=== PATIENT | female | born 1995 | race Caucasian/White ===

== ENCOUNTER 2025-11-04 18:00 | Emergency (ER) | payer BC, SELFPAY ==
[2025-11-04 18:01] VITALS: BP 117/88; PULSE 86; RESP 16; TEMP 36.7; O2SAT 97; BMI 16.9
--- OUTSIDE RECORDS SUMMARY | 2025-11-04 18:50 | XMS RPT_ITS | CCD ---
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 Name Role Phone Unavailable Primary Care Provider UnavailSALBADOR Mendez Attending Unavailable SALBADOR STUART Attending Unavailable SALBADOR STUART Referring Unavailable SALBADOR STUART Referring Unavailable SALBADOR STUART Referring Unavailable TAY JONES Referring Unavail able SALBADOR STUART Attending Unavailable Allergies Allergy Classification Reported Allergen(s) Allergy Type Date of Onset Reaction(s) Facility (6 sources) Iodine; Translations: [IODINE] Drug Allergy 10-16-2022 [facility] Medications Completed/Discontinued Medications Medication Drug Class(es) Dates Sig (Normalized) Sig (Original) acetaminophen 500 mg oral tablet (5 sources) acetaminophen (TYLENOL) 500 mg tablet Take 500 mg by mouth as needed. 0 Active Comment on above: Take 500 mg by mouth as needed. acetaminophen 325 mg / oxyCODONE hydrochloride 10 mg oral tablet (5 sources) Opioid Agonist take 1 tablet by mouth every eight hours oxyCODONE-acetamino phen (PERCOCET 10) 10-325 mg tablet Take 1 tablet by mouth every 8 hours. 0 Active Comment on above: Take 1 tablet by naomi every 8 hours. amLODIPine 2.5 mg oral tablet (5 sources) Dihydropyridine Calcium Channel Meagan amLODIPine (NORVASC) 2.5 mg tablet Take by mouth once daily. 0 Active Comment on above: Take by mouth once d aily. azithromycin 500 mg oral tablet (2 sources) Macrolide Antimicrobial take 1 tablet by mouth once daily azithromycin (ZITHROMAX) 500 mg tablet Take 500 mg by mouth once daily. 0 Active Comment on above: Take 500 mg by mouth once daily. cloNIDine hydrochloride 0.1 mg oral tablet (5 sources) Central alpha-2 Adrenergic Agonist take 1 tablet by mouth once daily cloNIDine HCl (CATAPRES) 0.1 mg tablet Take 0.1 mg by mouth once daily. 0 Active Comment on above: Take 0.1 mg by mouth once daily. cyclobenzaprine hydrochloride 10 mg oral tablet (2 sources) Muscle Relaxant cyclobenzaprine (FLEXERIL) 10 mg tablet Take by mouth as needed. 0 Active Comment on above: Take by mouth as nee ded. dexamethasone 4 mg oral tablet (2 sources) Corticosteroid take 1 tablet by mouth once daily dexAMETHasone (DECADRON) 4 mg tablet Take 4 mg by mouth once daily. 0 Active Comment on above: Take 4 mg by mouth o nce daily. 72 hr fentaNYL 0.025 mg/hr transdermal system (5 sources) Opioid Agonist fentaNYL (DURAGESIC) 25 mcg/hr Apply 1 Patch as directed every 72 hours. 0 Active Comment on above: Apply 1 Patch as dir ected every 72 hours. hydrOXYzine pamoate 50 mg oral capsule (5 sources) Antihistamine take 50 mg by mouth once daily hydroxyzine pamoate (VISTARIL ORAL) Take 50 mg by mouth once daily. 0 Active Comment on above: Take 50 mg by mouth once daily. ibuprofen 800 mg oral tablet (5 sources) Nonsteroidal Anti-inflammatory Drug take 1 tablet by mouth four times daily ibuprofen (MOTRIN) 800 mg tablet Take 800 mg by mouth four times daily. 0 Active Comment on above: Take 800 mg by mouth four times daily. iv contrast (will be provided with radiology test) (1 source) Start: 2 End: 2 inject 1 dose intravenously once, then inject 1 dose intravenously once iv contrast (will be provided with radiology test) Inject 1 Each intravenously one time only for [address] Facial Bone W No IV access, insert saline lock prior to the sedation, infusion, injection for imaging exam. Discontinue saline lock post exam. If Pt. has a central line or IVAD, may access for administration according to line specific nursing protocol. Once exam is complete flush line and de-access according to line specific nursing protocol in the CT contrast administration guidelines link. 1 Each 0 04/10/2022 04/10/2022 Comment on above: Inject 1 Each intrav enously one time only for [address] Facial Bone W No IV access, insert saline lock prior to the sedation, infusion, injection for imaging exam. Discontinue saline lock post exam. If Pt. has a central line or IVAD, may access for administration according to line specific nursing protocol. Once exam is complete flush line and de-access according to line specific nursing protocol in the CT contrast administration guidelines link. ondansetron 8 mg oral tablet (2 sources) Serotonin-3 Receptor Antagonist ondansetron (ZOFRAN) 8 mg tablet Take 8 mg by mouth as needed for nausea/vomiting. 0 Active Comment on above: Take 8 mg by mouth a s needed for nausea/vomiting. propranolol hydrochloride 20 mg oral tablet (5 sources) beta-Adrenergic Meagan take 1 tablet by mouth twice daily propranolol (INDERAL) 20 mg tablet Take 20 mg by mouth twice daily. 0 Active Comment on above: Take 20 mg by mouth twice daily. traMADol hydrochloride 50 mg oral tablet (5 sources) Opioid Agonist take 1 tablet by mouth every eight hours as needed traMADol (ULTRAM) 50 mg tablet Take 50 mg by mouth every 8 hours as needed for pain. 0 Active Comment on above: Take 50 mg by mouth every 8 hours as needed for pain. traZODone hydrochloride 50 mg oral tablet (5 sources) Serotonin Reuptake Inhibitor take 1 tablet by mouth once daily at bedtime traZODone (DESYREL) 50 mg tablet Take 50 mg by mouth daily at bedtime. 0 Active Comment on above: Take 50 mg by mouth daily at bedtime. Problems Active Problems Problem Classification Problem Date Documented Date Episodic/Chronic Other nervous system disorders (3 sources) Atypical facial pain; Translations: [Atypical facial pain] Episodic Other screening for suspected conditions (not mental disorders or infectious disease) (3 sources) Radiology result abnormal; Translations: [Abnormal findings on diagnostic imaging of other parts of musculoskeletal system] Onset: 11-26-2022 Episodic Past or Other Problems Problem Classification Problem Date Documented Da te Episodic/Chronic Other nervous system disorders (1 source) Atypical facial pain; Translations: [Atypical facial pain] Onset: 04-10-2022 Episodic Results Test Name Value Interpretation Reference Range Facil doreen David 12-15-2022 CNOV Office Visit (DMFPMN ) LLUVIA COOLEY ([id number]) 1995 F Date Time Provider Department 12/15/22 1:30 PM SALBADOR STUART DMFPMN During your visit today, we recorded the following information about you: Salbador Stuart DDS 12/30/2022 10:40 AM 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 Interval history provided by the patient - Pain not being managed. She started with a new pain medicine physician. Currently on 7.5mg of percocet TID along with tramadol. Not on fentanyl patch. Reports this is less than what she was taking previously. She reviewed the results NM bone scan on my chart prior to her visit. Pain at the site of #23 is worse. RCT on #26 is still in progress. She is currently on ABX whiich will finish in 2 week approximately. Also reports UR side had develop either a fistula or a ulcer and she was started on ABX for the same and that has subsequently resolved. There is a plan to repeat RCT on #18 as well. Interval history obtained via chart review - Patient had multiple ER visits in 2022 for maxillofacial pain. Patient was also seen at [facility] shirt marker for her complaints and and is pending MRI face to rule out osteomyelitis of the mandible. Exam: No changes from previous No extraoral swelling or erythema Intraoral Soft Tissues: Surgical site of #23 has healed. No gingival swelling, erythema that would suggest an infectious process. No vestibular fullness in the anterior mandible. No fistula noted on URQ. +TT palpation at one spot along the vestibule. Dentition: Good repair Radiographic examination: PA of #4,5 taken today No osteolytic changes noted. Bone fill noted compared to previous PA #4,5 Assessment: Post extraction pain Atypical facial pain, multiple sites Discussion: Results of NM bone scan were reviewed. I have also reviewed the study with a radiologist. Uptake is asymmetric but not significantly higher that would suggest an acute or chronic infectious process. Uptake in the rest of the body is higher than the mandible. Based on the study, no evidence of acute or chronic inflammatory process in the mandible event he uptake is asymmetric. No clinical or radiographic evidence of an ongoing osteolytic process of the bone at #23. In the absence of clinical and radiological findings, no surgical intervention is indicated. Patient is not satisfied and reported this was same way on URQ where the infection didn't show on routine radiograph and even on CT scan. Only imaging that showed bony involvement was a bone scan. She also insisted on the radiology report that 'the uptake is asymmetric and non specific and labeled leukocyte study may be performed'. 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 I explained to her that in the absence of clinical concern for infectious process the In-labeled leukocytes and sulfur colloid) SPECT-CT scan is not necessary. Patient was extremely frustrated and expressed that everything is so difficult and she is in pain without relief. Again, I have low suspicion of of an ongoing osteomyelitis or inflammatory process of the anterior mandible based on clinical and imaging obtained. Will order In-labeled leukocytes and sulfur colloid to check for any acute or chronic inflammatory process. Advised to stay off of antibiotics for 4 weeks before the scan and no manipulation in the area of interest. Bone scan can still show uptake due to underlying bone turnover and metabolism which still will be clinically correlated for osteomyelitis prior to any intervention. 30 Minutes total visit spent face to face with patient. Greater than 50% of the time was spent for counseling and coordination of care, discussing treatment options and recommendations. All of patients questions answered to the best of my ability. Referring Provider: SALBADOR STUART [[id number]] Allergies As of Date: 12/15/2022 Noted Allergy Reaction IV CONTRAST (IODINE) 10/16/2022 2 - Rash Comments: Gets chest pain Date Reviewed: 12/15/2022 Reviewed by: Ashish Guerrero - Fully Assessed Reason for Visit: Oral surgery followup [1492] Primary Visit Diagnosis:Atypical facial pain [G50.1] Order(s):NM INFECTION LIMITED WBC [[id number]] Order #: [id number] FUTURE Prescriptions as of 12/30/2022 - azithromycin (ZITHROMAX) 500 mg tablet Take 500 mg by mouth once daily. - ondansetron (ZOFRAN) 8 mg tablet Take 8 mg by mouth as needed for nausea/vomiting. - cyclobenzaprine (FLEXERIL) 10 mg tablet Take by mouth as needed. - dexAMETHasone (DECADRON) 4 mg tablet Take 4 mg by mouth once daily. - oxyCODONE-acetaminoph en (PERCOCET 10) 10-325 mg tablet Take 1 tablet by mouth every 8 hours. - traMADol (more content not included)... Normal [facility] CNPNon 12-15-2022 CNPN Telephone ([employer]) LLUVIA COOLEY ([id number]) 1995 F Date Time Provider Department 12/15/22 SALBADOR STUART [employer] During your visit today, we recorded the following information about you: Lauren Ospina [facility] 12/15/2022 3:19 PM Signed Patient is complaining about the process for for scheduling and stating she needs orders put in system from appointment today Allergies As of Date: 12/15/2022 Noted Allergy Reaction IV CONTRAST (IODINE) 10/16/2022 2 - Rash Comments: Gets chest pain Date Reviewed: 12/15/2022 Reviewed by: Ashish Guerrero - Fully Assessed Reason for Visit: Orders [681] Cmt: Patient is stating she needs orders put into the system for testing and to be scheduled. Prescriptions as of 12/15/2022 - azithromycin (ZITHROMAX) 500 mg tablet Take 500 mg by mouth once daily. - ondansetron (ZOFRAN) 8 mg tablet Take 8 mg by mouth as needed for nausea/vomiting. - cyclobenzaprine (FLEXERIL) 10 mg tablet Take by mouth as needed. - dexAMETHasone (DECADRON) 4 mg tablet Take 4 mg by mouth once daily. - oxyCODONE-acetaminoph en (PERCOCET 10) 10-325 mg tablet Take 1 tablet by mouth every 8 hours. - traMADol (ULTRAM) 50 mg tablet Take 50 mg by mouth every 8 hours as needed for pain. - ibuprofen (MOTRIN) 800 mg tablet Take 800 mg by mouth four times daily. - acetaminophen (TYLENOL) 500 mg tablet Take 500 mg by mouth as needed. - propranolol (INDERAL) 20 mg tablet Take 20 mg by mouth twice daily. - amLODIPine (NORVASC) 2.5 mg tablet Take by mouth once daily. - hydroxyzine pamoate (VISTARIL ORAL) Take 50 mg by mouth once daily. - cloNIDine HCl (CATAPRES) 0.1 mg tablet Take 0.1 mg by mouth once daily. - traZODone (DESYREL) 50 mg tablet Take 50 mg by mouth daily at bedtime. - fentaNYL (DURAGESIC) 25 mcg/hr Apply 1 Patch as directed every 72 hours. Problem List As Of Date: 12/15/2022 (None) Encounter Status:Closed by LAUREN PONCE on 12/15/22 Normal [facility] BONE 3 PHASEon 11-26-2022 AL BONE 3 PHASE * * *Final Report* * * DATE OF EXAM: Nov 26 2022 2:23PM [facility] 0009 - AL BONE 3 PHASE / PROCEDURE REASON: Abnormal findings on diagnostic imaging of other parts of musculoskeletal system * * * * Physician Interpretation * * * * THREE PHASE BONE SCAN CLINICAL HISTORY: Atypical mandibular pain. ? osteomyelitis in mandible without clinical signs of osteomyelitis. TECHNIQUE: 18 mCi 99mTc MDP IV. Immediate blood flow, blood pool, and delayed images 3-4 hours post injection of the head and neck were obtained. SPECT imaging of the head and neck was performed; nondiagnostic, noncontrast CT imaging of the same body region was performed for anatomic localization purposes only. Due to the low dose technique utilized for the acquisition of the CT images to minimize patient dose, the images cannot reliably evaluate underlying pathology. Incidental findings are noted. CT Dose-Length Product (DLP): 113 mGy*cm. CT Dose Reduction Employed: Yes RESULT: Flow images are somewhat suboptimal due to the count density. Blood pool images demonstrate no hyperemia On the delayed planar and SPECT-CT imaging, mild asymmetrically increased uptake in the right mandibular condyle Slight asymmetric uptake measuring approximately 2.5 cm in length in the left mandibular alveolar ridge from the mentum extending laterally Slight heterogeneity with no other definite focal abnormal uptake in the maxillary mandibular alveolar ridges. Associate Software Engineer (topogram) images: No additional findings. IMPRESSION: * Slight asymmetric uptake measuring approximately 2.5 cm in length in the LEFT mandibular alveolar ridge from the mentum extending laterally, the degree of uptake is not typical of osteomyelitis, and may be due to ongoing bone turnover although is nonspecific. If there is a clinical concern for an infectious process, evaluation with a dual tracer (In-labeled leukocytes and sulfur colloid) SPECT-CT scan may be performed. * Mild asymmetrically increased uptake in the RIGHT mandibular condyle may be secondary to residual growth plate uptake, and less likely, TMJ degenerative changes or osteomyelitis. Suggest correlation with clinical exam findings to determine follow-up workup. Medical Service Representative: LOUIS Transcribe Date/Time: Nov 26 2022 4:43P Dictated by : CAROLS MATOS MD This examination was interpreted and the report reviewed and electronically signed by: CARLOS MATOS MD on Nov 26 2022 5:17PM EST [id number] Normal [facility] No Panel Informationon 11-26 [facility] CNOVon 10-16-2022 CNOV Office Visit (DMFPMN ) LLUVIA COOLEY ([id number]) 1995 F Date Time Provider Department 10/16/22 2:00 PM SALBADOR STUART DMFPMN During your visit today, we recorded the following information about you: Salbador Stuart DDS 10/21/2022 4:44 PM 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 CT scan ordered at last visit showed no evidence of ongoing osteomyelitis or inflammatory disease. Since the last visit, she had another tooth removed since it was fractured and has continuous pain at the surgical site. 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 Reports dull achy pain has underwent multiple attempts for RCT with no relief. Reconstruction of URQ with dental implants. Reports her symptoms on URQ have improved. She is not sure if the pain medication is masking her symptoms on the upper left. Reports she is currently looking to switch her PCP. Is on Fentanyl patch, tramadol and percocet to manage her facial pain. Also taking ibuprofen, tylenol for #26 as other meds do not help with that tooth. At present time, #23,26 are most painful. Current Outpatient Medications Medication Sig Dispense Refill oxyCODONE-acetaminoph en (PERCOCET) 10-325 mg tablet Take 1 tablet by mouth every 8 hours. traMADol (ULTRAM) 50 mg tablet Take 50 mg by mouth every 8 hours as needed for pain. ibuprofen (MOTRIN) 800 mg tablet Take 800 mg by mouth four times daily. acetaminophen (TYLENOL EXTRA STRENGTH) 500 mg tablet Take 500 mg by mouth as needed. propranolol (INDERAL) 20 mg tablet Take 20 mg by mouth twice daily. amLODIPine (NORVASC) 2.5 mg tablet Take by mouth once daily. hydroxyzine pamoate (VISTARIL ORAL) Take 50 mg by mouth once daily. cloNIDine HCl (CATAPRES) 0.1 mg tablet Take 0.1 mg by mouth once daily. traZODone (DESYREL) 50 mg tablet Take 50 mg by mouth daily at bedtime. fentaNYL (DURAGESIC) 25 mcg/hr Apply 1 Patch as directed every 72 hours. No current facility-administered medications for this visit. General appearance: alert, pleasant, no distress, cooperative. Extraoral, Head and Neck exam: No extraoral swelling or erythema Intraoral Soft Tissues: Surgical site of #23 has healed. No gingival swelling, erythema that would suggest an infectious process. No vestibular fullness in the anterior mandible. Dentition: Good repair Radiographic examination: PA of #23 taken Well healed extraction socket of #23. No osteolytic changes noted. Assessment: Post extraction pain Atypical facial pain, multiple sites Discussion: No clinical or radiographic evidence of an ongoing osteolytic process of the bone at #23. In the absence of clinical and radiological findings, no surgical intervention is indicated. Patient was not satisfied and reported this was same way on URQ where the infection didn't show on routine radiograph and even on CT scan. Only imaging that showed bony involvement was a bone scan. I have low suspicion of of an ongoing osteomyelitis or inflammatory process of the anterior mandible. Will order bone scan to rule any pathosis. Bone scan can still show uptake due to underlying bone turnover and metabolism which still will be clinically correlated for osteomyelitis prior to any intervention. Patient did inquire about reconstructive option for URQ with dental implants since her pain seemed to have improved at that site. In order to reconstruct the URQ will require additional bone grafts +/- sinus augmentation. Given her h/o refractory facial pain after surgical procedure I would advise against any further surgical intervention if she is asymptomatic. No surgical restorative options were discussed and she reports using a removable partial denture. Referring Provider: TAY JONES [[id number]] Allergies As of Date: 10/16/2022 Noted Allergy Reaction IV CONTRAST (IODINE) 10/16/2022 2 - Rash Comments: Gets chest pain Date Reviewed: 04/10/2022 Reviewed by: Ashish Reyes Fully Assessed Reason for Visit: Consult [502] Primary Visit Diagnosis:Atypical facial pain [G50.1] Other Visit Diagnosis:Abnormal findings on diagnostic imaging of other parts of musculoskeletal system [R93.7] Order(s):NM BONE 3 PHASE [1983173] Order #: [id number] FUTURE CONSULTATION - DIAGNOSTIC SERVICE PROVIDED BY DENTIST OR PHYSICIAN OTHER THAN REQUESTING DENTIST OR PHYSICIAN [D9310] Order #: [id number]: 1 FUTURE CONSULTATION - DIAGNOSTIC SERVICE PROVIDED BY DENTIST OR PHYSICIAN OTHER THAN REQUESTING DENTIST OR PHYSICIAN [D9310] Order #: [id number]: 1 Prescriptions as of 10/21/2022 - oxyCODONE-acetaminoph en (PERCOCET) 10-325 mg tablet Take 1 table (more content not included)... Normal [facility]UV[facility]OO[facility] ([id number]) 1995 [facility] Date Time Provider Department 08/15/22 [facility] During your visit today, we recorded the following information about you: DEE Dos Santos 08/15/2022 3:11 PM Signed LVM for pt per her message she left me yesterday to discuss her concerns regarding scheduling in dentistry Allergies As of Date: 08/15/2022 (Not on File) Date Reviewed: 04/10/2022 Reviewed by: Ashish Reyes Fully Assessed Reason for Visit: Patient Update [1234] Problem List As Of Date: 08/15/2022 (None) Encounter Status:Closed by GILMA RANGEL on 08/15/22 [facility] 08-14-2022 CNPN Telephone ([facility]FN) LLUVIA COOLEY ([id number]) 1995 [facility] Time Provider Department 08/14/22 [facility] During your visit today, we recorded the following information about you: Allergies As of Date: 08/14/2022 (Not on File) Date Reviewed: 04/10/2022 Reviewed by: Ashish Reyes Fully Assessed Reason for Visit: Appointment [186] Problem List As Of Date: 08/14/2022 (None) Encounter Status:Closed by [facility]CH [facility][id number]) 1995 [facility] Date Time Provider Department 08/14/22 [facility] During your visit today, we recorded the following information about you: Ester Syed 08/14/2022 3:56 PM Signed I called patient regarding MyChart message. I wanted to see if it was #18 that was bothering patient since that was treatment planned for EXT. Patient stated it was #26-her natural resource specialist referred her to OS. Per Dr. Stuart patient needs to have referral/xray sent to us and once we have that then we can set up 15 min virtual appointment. Patient asked about extraction site of #23-we did not do the extraction, but patient is stating it is bothering her. She is having issues with her current oral surgeon so does not know how she would be able to get a referral here for that. I encouraged her to focus on what she can get for the time being and she can discuss those concerns at her virtual follow up with Dr. Stuart once we can schedule that. She stated she didn't want a virtual follow up/wouldn't be comfortable with that. I expressed that is understandable and we would be able to make it into an in person, Dr. Stuart simply wanted to save her the drive. She continued to express that this is not the results she was hoping for. I explained it is per Dr. Stuart and I have to follow his guidance. 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 I transferred her to [facility] (however I believe she was unavailable-patient had to leave a message). Allergies As of Date: 08/14/2022 (Not on File) Date Reviewed: 04/10/2022 Reviewed by: Ashish Reyes - Fully Assessed Reason for Visit: Appointment [186] Cmt: 15 min virtual consult Problem List As Of Date: 08/14/2022 (None) Encounter Status:Closed by ESTER LYNCH on 08/14/22 [facility] CNOVon 04-10-2022 CNOV Office Visit (DMFPMN ) LLUVIA COOLEY ([id number]) 1995 F [facility] Date Time Provider Department 04/10/22 8:00 AM SALBADOR STUART DM[facility]MN During your visit today, we recorded the following information about you: Salbador StuartJOHANNA 04/21/2022 1:56 PM 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 Jones/Davion for persistent pain in extraction sockets #4,5,17. Mandibular left quadrant (LLQ) 2016 - #17,32 was removed and patient reports long lasting pain. Pain in #32 eventually resolved but experiences constant pain in LLQ. Pain is severe like a tooth ache but she experiences this in her jaw bone. Her dentist recommended RCT #18 which was completed in dec-january. Pain persisted and now her dentist recommends extractions of tooth #18. Maxillary right quadrant (URQ) August 2020 - #4 RCT tooth fractured - abscessed - extracted May 2021 - #5 infected - extracted Reports severe aching bone pain. Reports in january 2022 her oral surgeon did a biopsy and that showed evidence of osteomyelitis. H/o PICC line for IV abx twice. 2017 - for LLQ June to August 2021 for URQ Currently on oral antibiotics by ID. She didn't seem happy with the current management and feels like this maxillary osteomyelitis isn't being treated. 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 Current regimen is doxycycline and augmentin for 6 weeks. Patient is 2 weeks into treatment. Patient has seen every oral surgeon in her area and also seeked consultation at [facility]. reprots she didn't have a good experience at [facility] and was recommended to see pain management. She is currently taking percocet for pain in the URQ; reports percocet doesn't help with her pain in the LLQ, so for that she takes tramadol. Her main complaints is ongoing pain and is concerned that she is osteomyelitis of right maxilla and it is not being treated. Patient was advised to go tertiary care medical centers ([facility] and [facility] for management). Chart review was performed on care everywhere. Patient has under multiple CT can, bone scan and MRI. MRI form 2020 - no evidence of osteomyelitis. Refer to ID note from 03/19 in care everywhere. PMH - palpitations, anxiety PSH - maxillary debridement 2020 Meds - Inderal, percocet, tramadol General appearance: alert, pleasant, no distress, cooperative. Extraoral, Head and Neck exam: No extraoral swelling or erythema Parotid and submandibular glands soft, nonpainful to palpation bilaterally No lymphadenopathy V1, V2, V3, CN VII intact bilaterally ZOE Intraoral Soft Tissues: Clear saliva extruded from bilateral Sanjiv's and Waldo's ducts. Tongue soft and non-tender with no apparent lesions. Buccal mucosa without lesions bilaterally. Hard palate is without any lesions Soft palate is without erythema or gross lesions Oropharynx is WNL. Floor of mouth is soft, non tender. No palpable masses on bidigital manipulation. +TTP in the right maxillary edentulous space. No buccal vestibular edema, no fluctuance, no erythema No soft tissue changes suggest acute or chronic infection Dentition: Good repair Radiographic examination: GALEAS reviewed Well healed extraction socket #17 Recent RCT of #18. No PARL. Flattened left mandibular condyle Right maxillary alveolus with enlarged sinus. No moth eaten osteolytic changes noted. No evidence of osteomyelitis. Assessment: Atypical facial pain ? Osteomyelitis of maxilla Discussion: Patient is currently on oral ABX Advised her to continue with current treatment. If she prefers I can refer her to an ID specialist here. But patient prefers to find someone close to home. Advised patient to get CRP levels. These are very sensitive markers for inflammation. If there is acute or chronic infection/inflammatio n, it will be alter the CRP levels. Patient is interested is having tooth #18 removed. Advised her to provide us with a referral. It is possible that this may not relieve her pain on the LLQ and she has been suffering form chronic pain on the left side. Will obtain CT facial bones with IV contrast to evaluate any ongoing osteolysis in the jaw. If the there is no radiographic evidence of disease, surgical intervention is not recommended. Will likely defer to medical management and pain psychology center here. Plan pending CT. Extraction of #18 under [place]. Referring Provider: SELF [200] Allergies As of Date: 04/10/2022 (Not on File) Date Reviewed: 04/10/2022 Reviewed by: Oscar Reyes-A - Fully Assessed Reason for Visit: Consult [502] Visit Diagnosis:Atypical facial pain [G50.1] Order(s):CT FACIAL BONES W IVCON [[id number]] Order #: [id number] FUTURE [] iv contrast ( (more content not included)... Normal [facility] Encounters Encounter Date Encounter Type Care Provider Facility Start: 12-15-2022 End: 12-15-2022 ambulatory [facility] Facility:[facility] Start: 12-15-2022 Telephone encounter Salbador franz DDS Work Phone: Appointment Center Comment on above: Orders (Patient is s tating she needs orders put into the system for testing and to be scheduled. ) Start: 12-15-2022 End: 12-15-2022 Patient encounter procedure Salbador Stuart DDS Work Phone: Dentistry Comment on above: Atypical facial pain (Primary Dx) Start: 11-26-2022 End: 11-26-2022 [facility] Facility:[facility] Start: 11-26-2022 End: 11-26-2022 Subsequent hospital visit by physician [email or web address] Work Phone: Molecular Imaging Comment on above: Abnormal findings on diagnostic imaging of other parts of musculoskeletal system [R93.7] Start: 11-26-2022 End: 11-26-2022 [facility] Facility:[facility] Start: 11-26-2022 End: 11-26-2022 Subsequent hospital visit by physician [email or web address] Work Phone: Molecular Imaging Comment on above: Abnormal findings on diagnostic imaging of other parts of musculoskeletal system [R93.7] Start: 10-16-2022 End: 10-17-2022 ambulatory TAY JONES Facility:[facility] Start: 10-16-2022 End: 10-16-2022 Patient encounter procedure Salbador Stuart DDS Work Phone: Dentistry Comment on above: Atypical facial pain (Primary Dx); Abnormal findings on diagnostic imaging of other parts of musculoskeletal system Start: 08-14-2022 Telephone encounter Salbador Lucas osei DDS Work Phone: Dentistry Comment on above: Appointment (15 min virtual consult ) Appointment Start: 04-10-2022 End: 04-11-2022 ambulatory SALBADOR STUART Facility:[facility] Start: 04-10-2022 End: 04-10-2022 Patient encounter procedure Salbador Stuart JOHANNA Work Phone: Dentistry Comment on above: Atypical facial pain Procedures Date Procedure Procedure Detail Performing Clinician Start: 11-26-2022 Bone &/joint imaging 3 phase study Salbador Stuart JOHANNA Work Phone: Plan of Treatment Date Care Activity Detail Author Start: 11-09-2022 DEPRESSION ASSESSMENT [facility] Start: 07-10-2022 Influenza vaccination [facility] Start: 11-09-2021 DEPRESSION ASSESSMENT DEPRESSION ASS [facility] Start: 08-21-2021 COVID-19 VACCINE (3 - Booster for Pfizer series) COVID-19 VACCINE (3 - Booster for Pfizer series) [facility] Start: 05-16-2021 COVID-19 VACCINE (3 - Booster for Pfizer series) COVID-19 VACCINE (3 - Booster for Pfizer series) [facility] Start: 2016 PAP TESTING PAP TESTING [facility] Start: 2014 Urine microalbumin profile DTAP,TDAP,TD (1 - Tdap) [facility] Start: 2013 HEPATITIS C SCREENING HEPATITIS C SC REENING [facility] Start: 2013 HIV SCREENING HIV SCREENING [facility] Start: 2009 PEDS TO ADULT TRANSITION ANNUAL ASSESSMENT PEDS TO ADULT TRANSITION ANNUAL ASSESSMENT [facility] Start: 2007 Adult depression screening assessment DEPRESSION SCREENING [facility] Start: 2007 PEDS TO ADULT TRANSITION INITIAL DISCUSSION PEDS TO ADULT TRANSITION INITIAL DISCUSSION [facility] Start: 2006 HPV VACCINE (1 - 2-d ose series) HPV VACCINE (1 - 2-dose series) [facility] Start: 1995 Dental Oral Exam Dental Oral Exam [facility] Start: 1995 Dental Perio Probing Dental Perio Pr obing [facility] Start: 1995 Dental Prophylaxis Dental Prophylaxi s [facility] Start: 1995 Dental X-Ray: Bitewings Dental X-Ray : Bitewings [facility] Start: 1995 Dental X-Ray: FMX/Galeas Dental X-Ray: FMX/Galeas [facility] Start: 1995 HEPATITIS B (1 of 3 - 3-dose series) HEPATITIS B (1 of 3 - 3-dose series) [facility] Start: 1995 Periodontal Maintenance Periodontal Maintenance [facility] 18 EXTRACTION, ERUPT ED TOOTH REQUIRING REMOVAL OF BONE AND/OR SECTIONING OF TOOTH, AND INCLUDING ELEVATION OF MUCOPERIOSTE 18 EXTRACTION, ERUPTED TOOTH REQUIRING REMOVAL OF BONE AND/OR SECTIONING OF TOOTH, AND INCLUDING ELEVATION OF MUCOPERIOSTE Dental Routine 1 Occurrences starting 04/18/2022 [facility] Work Phone: Comment on above: 1 Occurrences starti ng 04/18/2022 End: 11-15-2023 Bone &/joint imaging 3 phase study NM BONE 3 PHASE Radiology Routine Abnormal findings on diagnostic imaging of other parts of musculoskeletal system 1 Occurrences starting 10/16/2022 until 11/15/2023 [facility] Work Phone: Comment on above: 1 Occurrences starti ng 10/16/2022 until 11/15/2023 CONSULTATION - DIAGNOSTIC SERVICE PROVIDED BY DENTIST OR PHYSICIAN OTHER THAN REQUESTING DENTIST OR PHYSICIAN CONSULTATION - DIAGNOSTIC SERVICE PROVIDED BY DENTIST OR PHYSICIAN OTHER THAN REQUESTING DENTIST OR PHYSICIAN Dental Routine Atypical facial pain 1 Occurrences starting 10/21/2022 [facility] Work Phone: Comment on above: 1 Occurrences starti ng 10/21/2022 End: 05-10-2023 Ct maxillofacial w/contrast material CT FACIAL BONES W IVCON Radiology Routine Atypical facial pain 1 Occurrences starting 04/10/2022 until 05/10/2023 [facility] Work Phone: Comment on above: 1 Occurrences starti ng 04/10/2022 until 05/10/2023 End: 01-15-2024 Rp loclzj inflammatory process limited area NM INFECTION LIMITED WBC Radiology Routine Atypical facial pain 1 Occurrences starting 12/16/2022 until 01/15/2024 [facility] Work Phone: Comment on above: 1 Occurrences starti ng 12/16/2022 until 01/15/2024 [facility] Payers Date Payer Category Payer Private Health Insurance [employer] A ETNA ASA GENERIC [id number] 2022-Present [phone] [id number] [place] [place] [address] [place] [address] PPO [id number] 2022 Unknown [id number] 2021 Unknown DENTAL DELTA [employer] MARLYS [id number] 2021-Present [address] [place] [address] Dental [id number] 2021 Unknown DENTAL DELTA [employer] MARLYS [id number] 2021-Present [address] [place] [address] Dental [id number] 2021 Unknown [id number] Social History Date Type Detail Facility Tobacco smoking stat [facility] Tobacco smoking consumption unknown [facility] Start: 1995 Sex Assigned At Not on file [facility] Start: 03-31-2022 End: 04-10-2022 Exposure to SARS-CoV-2 (event) Not sure [facility] Clinical Notes 04-18-2022 to 12-16-2022 Salbador Stuart DDS - 12/16/2022 11:26 AM ESTTelephone Encounter - Lauren Faith - 12/15/2022 3:18 PM RT Brian(R) - 11/26/2022 10:30 AM EST Note Date & Type Note Facility 12-16-2022 Note HNO ID: [id number] Author: Salbador Stuart DDS Service: ? 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 Interval history provided by the patient - Pain not being managed. She started with a new pain medicine physician. Currently on 7.5mg of percocet TID along with tramadol. Not on fentanyl patch. Reports this is less than what she was taking previously. She reviewed the results NM bone scan on my chart prior to her visit. Pain at the site of #23 is worse. RCT on #26 is still in progress. She is currently on ABX whiich will finish in 2 week approximately. Also reports UR side had develop either a fistula or a ulcer and she was started on ABX for the same and that has subsequently resolved. There is a plan to repeat RCT on #18 as well. Interval history obtained via chart review - Patient had multiple ER visits in 2022 for maxillofacial pain. Patient was also seen at [facility] shirt marker for her complaints and and is pending MRI face to rule out osteomyelitis of the mandible. Exam: No changes from previous No extraoral swelling or erythema Intraoral Soft Tissues: Surgical site of #23 has healed. No gingival swelling, erythema that would suggest an infectious process. No vestibular fullness in the anterior mandible. No fistula noted on URQ. +TT palpation at one spot along the vestibule. Dentition: Good repair Radiographic examination: PA of #4,5 taken today No osteolytic changes noted. Bone fill noted compared to previous PA #4,5 Assessment: Post extraction pain Atypical facial pain, multiple sites Discussion: Results of NM bone scan were reviewed. I have also reviewed the study with a radiologist. Uptake is asymmetric but not significantly higher that would suggest an acute or chronic infectious process. Uptake in the rest of the body is higher than the mandible. Based on the study, no evidence of acute or chronic inflammatory process in the mandible event he uptake is asymmetric. No clinical or radiographic evidence of an ongoing osteolytic process of the bone at #23. In the absence of clinical and radiological findings, no surgical intervention is indicated. Patient is not satisfied and reported this was same way on URQ where the infection didn't show on routine radiograph and even on CT scan. Only imaging that showed bony involvement was a bone scan. She also insisted on the radiology report that 'the uptake is asymmetric and non specific and labeled leukocyte study may be performed'. 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 I explained to her that in the absence of clinical concern for infectious process the In-labeled leukocytes and sulfur colloid) SPECT-CT scan is not necessary. Patient was extremely frustrated and expressed that everything is so difficult and she is in pain without relief. Again, I have low suspicion of of an ongoing osteomyelitis or inflammatory process of the anterior mandible based on clinical and imaging obtained. Will order In-labeled leukocytes and sulfur colloid to check for any acute or chronic inflammatory process. Advised to stay off of antibiotics for 4 weeks before the scan and no manipulation in the area of interest. Bone scan can still show uptake due to underlying bone turnover and metabolism which still will be clinically correlated for osteomyelitis prior to any intervention. 30 Minutes total visit spent face to face with patient. Greater than 50% of the time was spent for counseling and coordination of care, discussing treatment options and recommendations. All of patients questions answered to the best of my ability. 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 Interval history provided by the patient - Pain not being managed. She started with a new pain medicine physician. Currently on 7.5mg of percocet TID along with tramadol. Not on fentanyl patch. Reports this is less than what she was taking previously. She reviewed the results NM bone scan on my chart prior to her visit. Pain at the site of #23 is worse. RCT on #26 is still in progress. She is currently on ABX whiich will finish in 2 week approximately. Also reports UR side had develop either a fistula or a ulcer and she was started on ABX for the same and that has subsequently resolved. There is a plan to repeat RCT on #18 as well. Interval history obtained via chart review - Patient had multiple ER visits in 2022 for maxillofacial pain. Patient was also seen at [facility] shirt marker for her complaints and and is pending MRI face to rule out osteomyelitis of the mandible. Exam: No changes from previous No extraoral swelling or erythema Intraoral Soft Tissues: Surgical site of #23 has healed. No gingival swelling, erythema that would suggest an infectious process. No vestibular fullness in the anterior mandible. No fistula noted on URQ. +TT palpation at one spot along the vestibule. Dentition: Good repair Radiographic examination: PA of #4,5 taken today No osteolytic changes noted. Bone fill noted compared to previous PA #4,5 Assessment: Post extraction pain Atypical facial pain, multiple sites Discussion: Results of NM bone scan were reviewed. I have also reviewed the study with a radiologist. Uptake is asymmetric but not significantly higher that would suggest an acute or chronic infectious process. Uptake in the rest of the body is higher than the mandible. Based on the study, no evidence of acute or chronic inflammatory process in the mandible event he uptake is asymmetric. No clinical or radiographic evidence of an ongoing osteolytic process of the bone at #23. In the absence of clinical and radiological findings, no surgical intervention is indicated. Patient is not satisfied and reported this was same way on URQ where the infection didn't show on routine radiograph and even on CT scan. Only imaging that showed bony involvement was a bone scan. She also insisted on the radiology report that 'the uptake is asymmetric and non specific and labeled leukocyte study may be performed'. 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 I explained to her that in the absence of clinical concern for infectious process the In-labeled leukocytes and sulfur colloid) SPECT-CT scan is not necessary. Patient was extremely frustrated and expressed that everything is so difficult and she is in pain without relief. Again, I have low suspicion of of an ongoing osteomyelitis or inflammatory process of the anterior mandible based on clinical and imaging obtained. Will order In-labeled leukocytes and sulfur colloid to check for any acute or chronic inflammatory process. Advised to stay off of antibiotics for 4 weeks before the scan and no manipulation in the area of interest. Bone scan can still show uptake due to underlying bone turnover and metabolism which still will be clinically correlated for osteomyelitis prior to any intervention. 30 Minutes total visit spent face to face with patient. Greater than 50% of the time was spent for counseling and coordination of care, discussing treatment options and recommendations. All of patients questions answered to the best of my ability. documented in this encounter [facility] 12-15-2022 Miscellaneous Notes Patient is complaining about the process for for scheduling and stating she needs orders put in system from appointment today documented in this encounter [facility] 11-26-2022 Note HNO ID: [id number] Author: RT Bill(R) Service: Nuclear Medicine Author Type: Technologist Type: Progress Notes Filed: 11/26/2022 11:36 AM Note Text: RADIOLOGY SERVICE PROGRESS NOTE SERVICE DATE: 11/26/2022 SERVICE TIME: 11:35 AM PATIENT IDENTITY VERIFICATION COMPLETED USING TWO (2) STANDARD IDENTIFIERS: Name and Date of confirmed by patient verbally FALL SCREENING: Has the patient had 2 falls in the last year or 1 fall with injury or currently using an Ambulatory Assistive Device (Walker, Cane, Wheelchair, Crutches, etc.)? No PATIENT GENDER DATA: .female : No ALLERGIES: Reviewed and unchanged MEDICATIONS REVIEWED: Yes PATIENT RELEVANT IMPLANT DATA REVIEWED: Not Applicable CREATININE: No results found for: CREAT, EGFROTH, EGFRAA P.O.C.T. RESULTS: N/A November 26, [address] PERFORMED: No IV SITE: Ambulatory: A peripheral IV was started in the Left antecubital site with a Angio cath: 24 gauge. POST EXAM PIV STATUS: Discontinued PROCEDURE TYPE: NM INJECT: THREE PHASE BONE SCAN. 18 mCi Tc99m MDP. No other medications given.. ADMINISTRATION TIME: 1125 PATIENT DISCHARGED TO: Ambulatory patient, left NM department area. A Diagnostic radioactive procedure has taken place, with no further precautions necessary other than routine body substance precautions. More information regarding radiation safety can be found using this link: [email or web address]%20Nuclear%20M [email or web address] SIGNATURE: RT Bill(R) PATIENT NAME: Lluvia Cooley DATE: November 26, 2022 TIME: 11:35 AM PAGER/CONTACT #: [facility] 11-26-2022 History of Presen t illness Narrative RADIOLOGY SERVICE PROGRESS NOTE SERVICE DATE: 11/26/2022 SERVICE TIME: 11:35 AM PATIENT IDENTITY VERIFICATION COMPLETED USING TWO (2) STANDARD IDENTIFIERS: Name and Date of confirmed by patient verbally FALL SCREENING: Has the patient had 2 falls in the last year or 1 fall with injury or currently using an Ambulatory Assistive Device (Walker, Cane, Wheelchair, Crutches, etc.)? No PATIENT GENDER DATA: .female : No ALLERGIES: Reviewed and unchanged MEDICATIONS REVIEWED: Yes PATIENT RELEVANT IMPLANT DATA REVIEWED: Not Applicable CREATININE: No results found for: CREAT, EGFROTH, EGFRAA P.O.C.T. RESULTS: N/A November 26, [address] PERFORMED: No IV SITE: Ambulatory: A peripheral IV was started in the Left antecubital site with a Angio cath: 24 gauge. POST EXAM PIV STATUS: Discontinued PROCEDURE TYPE: NM INJECT: THREE PHASE BONE SCAN. 18 mCi Tc99m MDP. No other medications given.. ADMINISTRATION TIME: 1125 PATIENT DISCHARGED TO: Ambulatory patient, left NM department area. A Diagnostic radioactive procedure has taken place, with no further precautions necessary other than routine body substance precautions. More information regarding radiation safety can be found using this link: [email or web address]% 20Nuclear%20Medicine%20Procedur es.[email or web address] SIGNATURE: JHON Khan) PATIENT NAME: Lluvia Cooley DATE: November 26, 2022 TIME: 11:35 AM PAGER/CONTACT #: documented in this encounter [facility] 10-21-2022 Note HNO ID: [id number] Author: Salbador Stuart DDS Service: ? 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 CT scan ordered at last visit showed no evidence of ongoing osteomyelitis or inflammatory disease. Since the last visit, she had another tooth removed since it was fractured and has continuous pain at the surgical site. 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 Reports dull achy pain has underwent multiple attempts for RCT with no relief. Reconstruction of URQ with dental implants. Reports her symptoms on URQ have improved. She is not sure if the pain medication is masking her symptoms on the upper left. Reports she is currently looking to switch her PCP. Is on Fentanyl patch, tramadol and percocet to manage her facial pain. Also taking ibuprofen, tylenol for #26 as other meds do not help with that tooth. At present time, #23,26 are most painful. Current Outpatient Medications Medication Sig Dispense Refill oxyCODONE-acetaminophen (PERCOCET) 10-325 mg tablet Take 1 tablet by mouth every 8 hours. traMADol (ULTRAM) 50 mg tablet Take 50 mg by mouth every 8 hours as needed for pain. ibuprofen (MOTRIN) 800 mg tablet Take 800 mg by mouth four times daily. acetaminophen (TYLENOL EXTRA STRENGTH) 500 mg tablet Take 500 mg by mouth as needed. propranolol (INDERAL) 20 mg tablet Take 20 mg by mouth twice daily. amLODIPine (NORVASC) 2.5 mg tablet Take by mouth once daily. hydroxyzine pamoate (VISTARIL ORAL) Take 50 mg by mouth once daily. cloNIDine HCl (CATAPRES) 0.1 mg tablet Take 0.1 mg by mouth once daily. traZODone (DESYREL) 50 mg tablet Take 50 mg by mouth daily at bedtime. fentaNYL (DURAGESIC) 25 mcg/hr Apply 1 Patch as directed every 72 hours. No current facility-administered medications for this visit. General appearance: alert, pleasant, no distress, cooperative. Extraoral, Head and Neck exam: No extraoral swelling or erythema Intraoral Soft Tissues: Surgical site of #23 has healed. No gingival swelling, erythema that would suggest an infectious process. No vestibular fullness in the anterior mandible. Dentition: Good repair Radiographic examination: PA of #23 taken Well healed extraction socket of #23. No osteolytic changes noted. Assessment: Post extraction pain Atypical facial pain, multiple sites Discussion: No clinical or radiographic evidence of an ongoing osteolytic process of the bone at #23. In the absence of clinical and radiological findings, no surgical intervention is indicated. Patient was not satisfied and reported this was same way on URQ where the infection didn't show on routine radiograph and even on CT scan. Only imaging that showed bony involvement was a bone scan. I have low suspicion of of an ongoing osteomyelitis or inflammatory process of the anterior mandible. Will order bone scan to rule any pathosis. Bone scan can still show uptake due to underlying bone turnover and metabolism which still will be clinically correlated for osteomyelitis prior to any intervention. Patient did inquire about reconstructive option for URQ with dental implants since her pain seemed to have improved at that site. In order to reconstruct the URQ will require additional bone grafts +/- sinus augmentation. Given her h/o refractory facial pain after surgical procedure I would advise against any further surgical intervention if she is asymptomatic. No surgical restorative options were discussed and she reports using a removable partial denture. 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 CT scan ordered at last visit showed no evidence of ongoing osteomyelitis or inflammatory disease. Since the last visit, she had another tooth removed since it was fractured and has continuous pain at the surgical site. 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 Reports dull achy pain has underwent multiple attempts for RCT with no relief. Reconstruction of URQ with dental implants. Reports her symptoms on URQ have improved. She is not sure if the pain medication is masking her symptoms on the upper left. Reports she is currently looking to switch her PCP. Is on Fentanyl patch, tramadol and percocet to manage her facial pain. Also taking ibuprofen, tylenol for #26 as other meds do not help with that tooth. At present time, #23,26 are most painful. Current Outpatient Medications Medication Sig Dispense Refill oxyCODONE-acetaminophen (PERCOCET) 10-325 mg tablet Take 1 tablet by mouth every 8 hours. traMADol (ULTRAM) 50 mg tablet Take 50 mg by mouth every 8 hours as needed for pain. ibuprofen (MOTRIN) 800 mg tablet Take 800 mg by mouth four times daily. acetaminophen (TYLENOL EXTRA STRENGTH) 500 mg tablet Take 500 mg by mouth as needed. propranolol (INDERAL) 20 mg tablet Take 20 mg by mouth twice daily. amLODIPine (NORVASC) 2.5 mg tablet Take by mouth once daily. hydroxyzine pamoate (VISTARIL ORAL) Take 50 mg by mouth once daily. cloNIDine HCl (CATAPRES) 0.1 mg tablet Take 0.1 mg by mouth once daily. traZODone (DESYREL) 50 mg tablet Take 50 mg by mouth daily at bedtime. fentaNYL (DURAGESIC) 25 mcg/hr Apply 1 Patch as directed every 72 hours. No current facility-administered medications for this visit. General appearance: alert, pleasant, no distress, cooperative. Extraoral, Head and Neck exam: No extraoral swelling or erythema Intraoral Soft Tissues: Surgical site of #23 has healed. No gingival swelling, erythema that would suggest an infectious process. No vestibular fullness in the anterior mandible. Dentition: Good repair Radiographic examination: PA of #23 taken Well healed extraction socket of #23. No osteolytic changes noted. Assessment: Post extraction pain Atypical facial pain, multiple sites Discussion: No clinical or radiographic evidence of an ongoing osteolytic process of the bone at #23. In the absence of clinical and radiological findings, no surgical intervention is indicated. Patient was not satisfied and reported this was same way on URQ where the infection didn't show on routine radiograph and even on CT scan. Only imaging that showed bony involvement was a bone scan. I have low suspicion of of an ongoing osteomyelitis or inflammatory process of the anterior mandible. Will order bone scan to rule any pathosis. Bone scan can still show uptake due to underlying bone turnover and metabolism which still will be clinically correlated for osteomyelitis prior to any intervention. Patient did inquire about reconstructive option for URQ with dental implants since her pain seemed to have improved at that site. In order to reconstruct the URQ will require additional bone grafts +/- sinus augmentation. Given her h/o refractory facial pain after surgical procedure I would advise against any further surgical intervention if she is asymptomatic. No surgical restorative options were discussed and she reports using a removable partial denture. documented in this encounter [facility] 08-14-2022 Miscellaneous Notes I called patient regarding [employer] message. I wanted to see if it was #18 that was bothering patient since that was treatment planned for EXT. Patient stated it was #26-her natural resource specialist referred her to OS. Per Dr. Stuart patient needs to have referral/xray sent to us and once we have that then we can set up 15 min virtual appointment. Patient asked about extraction site of #23-we did not do the extraction, but patient is stating it is bothering her. She is having issues with her current oral surgeon so does not know how she would be able to get a referral here for that. I encouraged her to focus on what she can get for the time being and she can discuss those concerns at her virtual follow up with Dr. Stuart once we can schedule that. She stated she didn't want a virtual follow up/wouldn't be comfortable with that. I expressed that is understandable and we would be able to make it into an in person, Dr. Stuart simply wanted to save her the drive. She continued to express that this is not the results she was hoping for. I explained it is per Dr. Stuart and I have to follow his guidance. 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 I transferred her to [facility] (however I believe she was unavailable-patient had to leave a message). documented in this encounter [facility] 04-18-2022 Note HNO ID: [id number] Author: Salbador Stuart DDS Service: ? 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 Jones/Davion for persistent pain in extraction sockets #4,5,17. Mandibular left quadrant (LLQ) 2017 - #17,32 was removed and patient reports long lasting pain. Pain in #32 eventually resolved but experiences constant pain in LLQ. Pain is severe like a tooth ache but she experiences this in her jaw bone. Her dentist recommended RCT #18 which was completed in dec-january. Pain persisted and now her dentist recommends extractions of tooth #18. Maxillary right quadrant (URQ) August 2020 - #4 RCT tooth fractured - abscessed - extracted May 2021 - #5 infected - extracted Reports severe aching bone pain. Reports in january 2022 her oral surgeon did a biopsy and that showed evidence of osteomyelitis. H/o PICC line for IV abx twice. 2018 - for LLQ June to August 2021 for URQ Currently on oral antibiotics by ID. She didn't seem happy with the current management and feels like this maxillary osteomyelitis isn't being treated. 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 Current regimen is doxycycline and augmentin for 6 weeks. Patient is 2 weeks into treatment. Patient has seen every oral surgeon in her area and also seeked consultation at [facility]. reprots she didn't have a good experience at [facility] and was recommended to see pain management. She is currently taking percocet for pain in the URQ; reports percocet doesn't help with her pain in the LLQ, so for that she takes tramadol. Her main complaints is ongoing pain and is concerned that she is osteomyelitis of right maxilla and it is not being treated. Patient was advised to go tertiary care medical centers ([facility] and [facility] for management). Chart review was performed on care everywhere. Patient has under multiple CT can, bone scan and MRI. MRI form 2020 - no evidence of osteomyelitis. Refer to ID note from 03/19 in care everywhere. PMH - palpitations, anxiety PSH - maxillary debridement 2020 Meds - Inderal, percocet, tramadol General appearance: alert, pleasant, no distress, cooperative. Extraoral, Head and Neck exam: No extraoral swelling or erythema Parotid and submandibular glands soft, nonpainful to palpation bilaterally No lymphadenopathy V1, V2, V3, CN VII intact bilaterally ZOE Intraoral Soft Tissues: Clear saliva extruded from bilateral [place]'s and Waldo's ducts. Tongue soft and non-tender with no apparent lesions. Buccal mucosa without lesions bilaterally. Hard palate is without any lesions Soft palate is without erythema or gross lesions Oropharynx is WNL. Floor of mouth is soft, non tender. No palpable masses on bidigital manipulation. +TTP in the right maxillary edentulous space. No buccal vestibular edema, no fluctuance, no erythema No soft tissue changes suggest acute or chronic infection Dentition: Good repair Radiographic examination: GALEAS reviewed Well healed extraction socket #17 Recent RCT of #18. No PARL. Flattened left mandibular condyle Right maxillary alveolus with enlarged sinus. No moth eaten osteolytic changes noted. No evidence of osteomyelitis. Assessment: Atypical facial pain ? Osteomyelitis of maxilla Discussion: Patient is currently on oral ABX Advised her to continue with current treatment. If she prefers I can refer her to an ID specialist here. But patient prefers to find someone close to home. Advised patient to get CRP levels. These are very sensitive markers for inflammation. If there is acute or chronic infection/inflammation, it will be alter the CRP levels. Patient is interested is having tooth #18 removed. Advised her to provide us with a referral. It is possible that this may not relieve her pain on the LLQ and she has been suffering form chronic pain on the left side. Will obtain CT facial bones with IV contrast to evaluate any ongoing osteolysis in the jaw. If the there is no radiographic evidence of disease, surgical intervention is not recommended. Will likely defer to medical management and pain psychology center here. Plan pending CT. Extraction of #18 under [place]. 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 Jones/Davion for persistent pain in extraction sockets #4,5,17. Mandibular left quadrant (LLQ) 2016 - #17,32 was removed and patient reports long lasting pain. Pain in #32 eventually resolved but experiences constant pain in LLQ. Pain is severe like a tooth ache but she experiences this in her jaw bone. Her dentist recommended RCT #18 which was completed in dec-january. Pain persisted and now her dentist recommends extractions of tooth #18. Maxillary right quadrant (URQ) August 2020 - #4 RCT tooth fractured - abscessed - extracted May 2021 - #5 infected - extracted Reports severe aching bone pain. Reports in january 2022 her oral surgeon did a biopsy and that showed evidence of osteomyelitis. H/o PICC line for IV abx twice. 2018 - for LLQ June to August 2021 for URQ Currently on oral antibiotics by ID. She didn't seem happy with the current management and feels like this maxillary osteomyelitis isn't being treated. 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 Current regimen is doxycycline and augmentin for 6 weeks. Patient is 2 weeks into treatment. Patient has seen every oral surgeon in her area and also seeked consultation at [facility]. reprots she didn't have a good experience at [facility] and was recommended to see pain management. She is currently taking percocet for pain in the URQ; reports percocet doesn't help with her pain in the LLQ, so for that she takes tramadol. Her main complaints is ongoing pain and is concerned that she is osteomyelitis of right maxilla and it is not being treated. Patient was advised to go tertiary care medical centers ([facility] and [facility] for management). Chart review was performed on care everywhere. Patient has under multiple CT can, bone scan and MRI. MRI form 2020 - no evidence of osteomyelitis. Refer to ID note from 03/19 in care everywhere. PMH - palpitations, anxiety PSH - maxillary debridement 2020 Meds - Inderal, percocet, tramadol General appearance: alert, pleasant, no distress, cooperative. Extraoral, Head and Neck exam: No extraoral swelling or erythema Parotid and submandibular glands soft, nonpainful to palpation bilaterally No lymphadenopathy V1, V2, V3, CN VII intact bilaterally ZOE Intraoral Soft Tissues: Clear saliva extruded from bilateral Sanjiv's and Awldo's ducts. Tongue soft and non-tender with no apparent lesions. Buccal mucosa without lesions bilaterally. Hard palate is without any lesions Soft palate is without erythema or gross lesions Oropharynx is WNL. Floor of mouth is soft, non tender. No palpable masses on bidigital manipulation. +TTP in the right maxillary edentulous space. No buccal vestibular edema, no fluctuance, no erythema No soft tissue changes suggest acute or chronic infection Dentition: Good repair Radiographic examination: GALEAS reviewed Well healed extraction socket #17 Recent RCT of #18. No PARL. Flattened left mandibular condyle Right maxillary alveolus with enlarged sinus. No moth eaten osteolytic changes noted. No evidence of osteomyelitis. Assessment: Atypical facial pain ? Osteomyelitis of maxilla Discussion: Patient is currently on oral ABX Advised her to continue with current treatment. If she prefers I can refer her to an ID specialist here. But patient prefers to find someone close to home. Advised patient to get CRP levels. These are very sensitive markers for inflammation. If there is acute or chronic infection/inflammation, it will be alter the CRP levels. Patient is interested is having tooth #18 removed. Advised her to provide us with a referral. It is possible that this may not relieve her pain on the LLQ and she has been suffering form chronic pain on the left side. Will obtain CT facial bones with IV contrast to evaluate any ongoing osteolysis in the jaw. If the there is no radiographic evidence of disease, surgical intervention is not recommended. Will likely defer to medical management and pain psychology center here. Plan pending CT. Extraction of #18 under [place]. documented in this encounter [facility] Evaluation note Diagnosis Atypical facial pain Atypical face pain [facility] Diagnosis Atypical facial pain- Primary Atypical face pain Abnormal findings on diagnostic imaging of other parts of musculoskeletal system [facility] Diagnosis Abnormal findings on diagnostic imaging of other parts of musculoskeletal system [facility] Diagnosis Atypical facial pain- Primary Atypical face pain documented in this encounter [facility] for referral (narrative)* Diagnostic Procedure Only (Routine) - Pending Review Specialty Diagnoses / Procedures Referred By Contact Referred To Contact MOLECULAR & FUNCTIONAL IMAGING Diagnoses Abnormal findings on diagnostic imaging of other parts of musculoskeletal system Procedures NM BONE 3 PHASE BONE &/JOINT IMAGING 3 PHASE STUDY Salbador Stuart DDS [address] [place] [address] Molecular & Functional Imaging [address] [place] [address] Referral ID Status Reason Start Date Expiration Date Visits Requested Visits Authorized [id number] Pending Review Auto-Generat ed Referral 10/16/2022 11/15/2023 1 1 [facility] for referral (narrative)* Diagnostic Procedure Only (Routine) - Denied Specialty Diagnoses / Procedures Referred By Contact Referred To Contact MOLECULAR & FUNCTIONAL IMAGING Diagnoses Abnormal findings on diagnostic imaging of other parts of musculoskeletal system Procedures NM BONE 3 PHASE BONE &/JOINT IMAGING 3 PHASE STUDY Salbador Stuart DDS [address] [place] [address] Molecular & Functional Imaging [address] [place] [address] Referral ID Status Reason Start Date Expiration Date V isits Requested Visits Authorized [id number] Denied Auto-Generat ed Referral Patient Cleared - Admin/Chairm an/Director advise to proceed 11/26/2022 11/08/2023 2 0 [facility] for referral (narrative)* Diagnostic Procedure Only (Routine) - Pending Review Specialty Diagnoses / Procedures Referred By Ben reddy Referred To Contact MOLECULAR & FUNCTIONAL IMAGING Diagnoses Atypical facial pain Procedures NM INFECTION LIMITED WBC BONE &/JOINT IMAGING LIMITED AREA BONE &/JOINT IMAGING MULTIPLE AREAS BONE &/JOINT IMAGING 3 PHASE STUDY RP LOCLZJ VIGNESH PLNR 1 AREA SINGLE DAY IMAGING RP LOCLZJ VIGNESH PLNR 2+AREA 1+D IMG/1 AREA IMG>2+D Salbador Stuart DDS [address] [place] [address] Molecular & Functional Imaging [address] [place] [address] Referral ID Status Reason Start Date Expiration Date Visits Requested Visits Authorized [id number] Pending Review Auto-Generat ed Referral 12/16/2022 01/15/2024 1 1 [facility] for visit Narrative* Diagnostic Procedure Only (Routine) - Denied Specialty Diagnoses / Procedures Referred By Contact Referred To Contact MOLECULAR & FUNCTIONAL IMAGING Diagnoses Abnormal findings on diagnostic imaging of other parts of musculoskeletal system Procedures NM BONE 3 PHASE BONE &/JOINT IMAGING 3 PHASE STUDY Salbador Stuart DDS [address] [place] [id number] Molecular & Functional Imaging [address] [place] [address] Referral ID Status Reason Start Date Expiration Date V isits Requested Visits Authorized [id number] Denied Auto-Generat ed Referral Patient Cleared - Admin/Chairm an/Director advise to proceed 11/26/2022 11/08/2023 2 0 [facility] Reason for Referral Specialty Diagnoses / Procedures Referred By Ben reddy Referred To Contact CT IMAGING Diagnoses Atypical facial pain Procedures CT FACIAL BONES W IVCON CT MAXILLOFACIAL W/CONTRAST MATERIAL Salbador Stuart DDS [address] [place] [address] Ct Imaging Referral ID Status Reason Start Date Expiration Date Visits Requested Visits Authorized [id number] Pending Review Auto-Generat ed Referral 04/10/2022 05/10/2023 1 1 Summary Purpose Family History No Family History Records Found Advance Directives No Advanced Directives Records Found Additional Source Comments Source Comments (unrecognize d section and content) In the event this informatio n is protected by the Federal Confidentiality of Alcohol and Drug Abuse Patient Records regulations: The Federal rules restrict any use of the information to criminally investigate or prosecute any alcohol or drug abuse [facility] event this information is protected by the Federal Confidentiality of Alcohol and Drug Abuse Patient Records regulations: The Federal rules restrict any use of the information to criminally investigate or prosecute any alcohol or drug abuse patient.[facility] the event this information is protected by the Federal Confidentiality of Alcohol and Drug Abuse Patient Records regulations: The Federal rules restrict any use of the information to criminally investigate or prosecute any alcohol or drug abuse patient.[facility] the event this information is protected by the Federal Confidentiality of Alcohol and Drug Abuse Patient Records regulations: The Federal rules restrict any use of the information to criminally investigate or prosecute any alcohol or drug abuse patient.[facility] the event this information is protected by the Federal Confidentiality of Alcohol and Drug Abuse Patient Records regulations: The Federal rules restrict any use of the information to criminally investigate or prosecute any alcohol or drug abuse patient.[facility] the event this information is protected by the Federal Confidentiality of Alcohol and Drug Abuse Patient Records regulations: The Federal rules restrict any use of the information to criminally investigate or prosecute any alcohol or drug abuse patient.[facility] the event this information is protected by the Federal Confidentiality of Alcohol and Drug Abuse Patient Records regulations: The Federal rules restrict any use of the information to criminally investigate or prosecute any alcohol or drug abuse patient.[facility] Reason for Visit (unrecogniz ed section and content) Reason Comments Consult Specialty Diagnoses / Procedures Referred By Contac t Referred To Contact DENTISTRY Diagnoses [id number] Procedures REFERRAL TO [facility]CIAL [facility] PANORAMIC RADIOGRAPHIC IMAGE CONSULTATION - DIAGNOSTIC SERVICE PROVIDED BY DENTIST OR PHYSICIAN OTHER THAN REQUESTING DENTIST OR PHYSICIAN OMFS CONSULT Self [facility] [place] [facility] [address] [place] [address] Referral ID Status Reason Start Date Expiration Date V isits Requested Visits Authorized [id number] Closed Financial Clearance Required - [employer] Payor 01/20/2022 04/20/2022 1 1 Reason Comments Appointment 15 min virtual consu lt Reason Comments Appointment Specialty Diagnoses / Procedures Referred By Contac t Referred To Contact DENTISTRY Diagnoses Consult #4, #5, #26, #23, #18 EXT referral/xray in email Procedures REFERRAL TO [facility] OMFS CONSULT Tay Jones [address] [address] [facility] [place] [facility] [address] [place] [address] Referral ID Status Reason Start Date Expiration Date V isits Requested Visits Authorized [id number] Closed Dental - Patient Cleared required payment collected 09/26/2022 12/25/2022 1 1 Reason Comments Orders Patient is stating s he needs orders put into the system for testing and to be scheduled. Reason Comments Oral surgery followup Specialty Diagnoses / Procedures Referred By Contac t Referred To Contact Dentistry / DENTISTRY Diagnoses Xray F/U Procedures OFFICE/OUTPATIENT ESTABLISHED MOD MDM 30-39 MIN EST PATIENT Salbador Stuart DDS [address] [place] [address] Salbador Stuart, DDS [address] [place] [address] Referral ID Status Reason Start Date Expiration Date Visits Re quested Visits Authorized [id number] Closed 12/15/2022 11/08/2023 1 0 INFORMATION SOURCE (unrecogn ized section and content) DATE CREATED AUTHOR 12/31/2022 [facility] FOR RECORDS PERTAINING TO PATIENTS WHO ARE OR HAVE BEEN ENROLLED IN A CHEMICAL DEPENDENCY/SUBSTANCEABUSE PROGRAM, SOME INFORMATION MAY BE OMITTED. This clinical summary was aggregated from multiple sources. Caution should be exercised in using it in the provision of clinical care. This summary normalizes information from multiple sources, and as a consequence, information in this document may materially change the coding, format and clinical context of patient data. In addition, data may be omitted in some cases. CLINICAL DECISIONS SHOULD BE BASED ON THE PRIMARY CLINICAL RECORDS. [employer] provides no warranty or guarantee of the accuracy or completeness of information in this document.
--- NOTE | 2025-11-04 18:56 | CT_ITS ---
PROCEDURE: SOFT TISSUE NECK WITH CONTRAST 11/04/2025 REASON FOR EXAM: JAW SWELLING TECHNIQUE: Procedure Code: CTNEW Modality: CT Procedure: SOFT TISSUE NECK WITH CONTRAST CONTRAST: Isovue 370 VOLUME: 75 mL One or more dose reduction techniques were used (e.g., Automated exposure control, adjustment of the mA and/or kV according to patient size, use of iterative reconstruction technique). RADIATION DOSE SUMMARY: DLP: 265.55 mGycm COMPARISON: None available. FINDINGS: Aerodigestive tract: The floor of mouth, base of tongue, nasopharynx, oropharynx, hypopharynx, and larynx appear overall symmetric without evidence of nodular or masslike enhancement. The visualized trachea is clear. The nasal cavity is unobstructed. The right maxillary 1st and 2nd premolars are not present, presumably surgically extracted. Salivary glands: (Major): The submandibular glands and parotid glands appear within normal limits. Thyroid gland: Unremarkable. Lymph nodes: There is no evidence of pathologic cervical lymphadenopathy. Vasculature: The common carotid, cervical internal carotid, and cervical vertebral arteries opacify with intravenously administered contrast. Paranasal sinuses: The paranasal sinuses are predominantly clear. Orbits: Unremarkable. Intracranial/cranium: The partially visualized intracranial contents appear overall within normal limits for the patient's stated age, although assessment is limited due to technique (e.g. the [id number]). Cervical spine: Unremarkable. Lung apices: The visualized lung apices are predominantly clear. CT/Soft Tissue Neck WITH Contrast IMPRESSION: 1. No dominant neck mass or pathologic cervical lymphadenopathy. 2. Right maxillary 1st and 2nd premolars are presumably surgically extracted. No evidence of drainable fluid collection. Reading Location: [id number]
--- NOTE | 2025-11-04 18:59 | ED.VIS.DENTA ---
HPI History of Present Illness Chief Complaint: Dental Informant: patient Onset/Context/Timing Onset: Days Context: Gradual Onset Timing: Continuous Quality: Aching, tightness, sharp Location: Right lower jaw Worsened by: Eating Relieved by: - (Nothing) Associated Symptoms Assocated Symptom - Dental: jaw swelling and face swelling; Negative for fever, cold sensitivity or hot sensitivity Narrative Narrative: Patient presents with right lower jaw pain and dental pain that has been getting worse over the past few days. Patient describes it as aching, tight, and sharp. Patient states that his over the right lower teeth. Patient states it is worse with eating. Patient admits to some swelling over the area. Patient states she has had similar episodes recently. Patient states she has been on courses of Augmentin, azithromycin, and Flagyl. Patient states that her dentist is concerned that she may have chronic osteomyelitis. [facility] Medical History (Updated 11/04/25 @ 22:[address] Coleman Griffith DO) Osteomyelitis Home Medications ?Medication ?Instructions ?Recorded ?Last Taken ?Type clindamycin HCl 300 mg capsule 300 mg PO Q6H #40 CAPSULES 11/04/25 Unknown Rx (Cleocin HCl) hydrocodone-acetaminophen 5-325mg 1 tab PO Q6H PRN PRN Pain 3 days 11/04/25 Unknown Rx 5mg-325mg #10 TABLETS Allergy/AdvReac Type Severity Reaction Status Date / Time Iodinated Contrast Media Allergy Intermediate HIVES Verified 11/04/25 18:04 (iodine contrast) Surgical History (Updated 11/04/25 @ 20:[address] Coleman Griffith, ) Hx of oral surgery Social History Smoking Status: Never smoker ROS ROS ED Constitutional Constitutional ED: Denies chills or fever(s) Eyes Eyes: Denies blurry vision or change in vision ENT ENT ED: Denies rhinorrhea or sore throat Cardiovascular Cardiovascular: Denies chest pain or palpitations Respiratory/Chest Respiratory/Chest: Denies cough or dyspnea Gastrointestinal Gastrointestinal: Denies nausea or vomiting Genitourinary Genitourinary ED: Denies dysuria or hematuria Musculoskeletal Musculoskeletal: Denies back pain or neck pain Integumentary Denies abscess or rash Neurologic Neurologic: Denies headache(s) or weakness Allergic/Immunologic Allergic/Immunologic ED: Denies mouth swelling or urticaria EXAM Physical Exam Const Vital Signs: 11/04/25 18:01 11/04/25 19:14 11/04/25 20:00 Temperature 98.1 F 98.4 F 98.4 F Temperature Source Oral Oral Oral Pulse Rate 86 79 74 Respiratory Rate 16 16 16 Blood Pressure 117/88 H 124/91 H 122/86 H Blood Pressure Mean 97 102 98 Pulse Ox 97 98 99 Oxygen Delivery Method Room Air Room Air Room Air 11/04/25 21:00 Temperature 98.3 F Temperature Source Oral Pulse Rate 77 Respiratory Rate 16 Blood Pressure 135/70 H Blood Pressure Mean 91 Pulse Ox 98 Oxygen Delivery Method Room Air Positive well nourished and well developed Constitutional Narrative: BMI is 16.9 General Appearance ED: well developed and NAD HEENT HEENT Narrative: Oral mucosa is pink and moist. Oropharynx is clear. Airway is patent. There is some mild edema over the right lower mandible near the 2nd and 3rd molar areas. There is no fluctuance. There is no discharge or drainage. There is no sublingual edema. There is no evidence of Hang's angina. Teeth and Gingiva: gingiva abnormal Positive for gingival edema Throat: posterior oropharynx normal Eyes PERRL and EOMs intact bilaterally Neck General: Negative for anterior neck swelling, tenderness or submandibular swelling Resp normal respiratory effort and clear to auscultation bilaterally Cardio regular rate and regular rhythm GI non-tender and non-distended Palpation: soft Neuro oriented x3, CN's II-XII intact bilaterally, moves all extremities, no focal motor deficits and no sensory deficits noted Sensorium / Orientation: alert Motor Exam: strength 5/5 throughout Psych mental status grossly normal MDM MDM MDM Narrative Medical decision making narrative: Differential diagnosis includes dental abscess, infected dental carry, gingivitis, and parapharyngeal abscess. CT scan of the soft tissue neck will be obtained to assess for dental abscess and parapharyngeal abscess. CBC will be obtained to assess for leukocytosis and anemia. Basic metabolic profile will be obtained to assess for electrolyte abnormality and renal function. Lab Data Attestation: I reviewed the patient's lab results. Lab results narrative: CBC was reviewed and showed a mild anemia with a hemoglobin of 11.7 and hematocrit 36.3. Basic metabolic profile was reviewed and was essentially within normal limits. Labs: Laboratory Results - last 24 hr 11/04/25 19:13 WBC 5.9 RBC 3.92 L Hgb 11.7 L Hct 36.3 L MCV 92.6 MCH 29.8 MCHC 32.2 RDW Std Deviation 42.7 RDW Coeff of Fernando 12.7 Plt Count 315 MPV 8.7 Immature Gran % (Auto) 0.300 Neut % (Auto) 70.4 H Lymph % (Auto) 18.1 L [place] % (Auto) 9.4 Eos % (Auto) 1.5 Baso % (Auto) 0.3 Absolute Neuts (auto) 4.1 Absolute Lymphs (auto) 1.06 Nucleated RBC % 0 Sodium 141 Potassium 3.5 Chloride 105 Carbon Dioxide 25.8 Anion Gap 11 BUN 7 Creatinine 0.50 L Estim Creat Clear Calc 124.82 Est GFR (MDRD) Non-Af 130 BUN/Creatinine Ratio 13.4 Glucose 100 H Calcium 9.1 Radiography Diagnostic Testing: Clinical Impression(s) from Imaging Studies Soft Tissue Neck CT 11/04/25 18:56 IMPRESSION: 1. No dominant neck mass or pathologic cervical lymphadenopathy. 2. Right maxillary 1st and 2nd premolars are presumably surgically extracted. No evidence of drainable fluid collection. Reading Location: [facility] CT scan of the soft tissue neck was obtained. There is no neck mass or abscess. There is no mandibular abscess noted. There is no evidence of Hang's angina. This was interpreted by the radiologist. I also independently reviewed the images and did not see any evidence of mandibular abscess or parapharyngeal abscess. Treatment and Re-Evaluation Narrative: Patient has a history of allergy to contrast dye. Patient was pretreated with Solu-Medrol and Benadryl. Patient was also given a dose of clindamycin. Patient was advised of her findings. Patient was given a prescription for clindamycin. Patient was also given a prescription for a short course of [place]. Patient was instructed to follow-up with her oral surgeon as scheduled. Patient was instructed to return if worse in any way. Patient understood and was agreeable with the plan. All questions were answered. Discharge Plan Triage Chief Complaint: Dental ED Provider: Coleman Griffith Dx/Rx/DC Orders Clinical Impression: Infected dental caries, Elevated blood pressure reading Instructions: ED Dental Pain Prescriptions: New clindamycin HCl [Cleocin HCl] 300 mg capsule 300 mg PO Q6H Qty: 40 0RF hydrocodone-acetaminophen 5-325 mg tablet 1 tab PO Q6H PRN PRN (Reason: Pain) 3 Days Qty: 10 0RF Primary Care Provider: Care Physician,No Primary Referrals: Care Physician,No Primary [Primary Care Provider, Medical] Dentist,Your [STAFF PHYSICIAN, Dentistry] - 5-7 Days Print Language: Macedonian Disposition Disposition: Home, Self Care
[2025-11-04 19:14] VITALS: BP 124/91; PULSE 79; RESP 16; TEMP 36.9; O2SAT 98
[2025-11-04 19:17] LABS: Hematocrit 36.3 % (37-47); Hemoglobin 11.7 g/dL (12.0-15.0); Immature Granulocytes Count 0.020 X10^3/uL (0.0-0.0); Mean Corp Hgb Conc 32.2 g/dL (32-36); Mean Corpuscular Volume 92.6 fL (81-99); Mean Platelet Vol. 8.7 fl (6.2-12.0); NRBC Flagged by Analyzer 0 % (0-5); Platelet Count 315 K/mm3 (150-450); RBC Distribution Width CV 12.7 % (11.6-14.6); RBC Distribution Width SD 42.7 fl (35.1-43.9); Red Blood Count 3.92 M/mm3 (4.2-5.4); White Blood Count 5.9 K/mm3 (4.4-11.0)
[2025-11-04] MEDS: Clindamycin 900 MG/50 ML BAG 75 MG IV (19:21)
[2025-11-04] MEDS: DiphenhydrAMINE 50 MG/ML Syringe IV (19:26)
[2025-11-04 19:41] LABS: Anion Gap 11 (7-18); BUN 7 mg/dL (4-19); BUN/Creat Ratio 13.4 RATIO (10-20); Calcium,Total 9.1 mg/dL (7.6-11.0); Carbon Dioxide 25.8 mmol/L (20.0-29.0); Chloride 105 mmol/L (96-106); Estimated Creatinine Clearance 124.82 ml/min (50-250); Glucose 100 mg/dL (70-99); Potassium 3.5 mmol/L (3.5-5.1)
[2025-11-04 20:00] VITALS: BP 122/86; PULSE 74; RESP 16; TEMP 36.9; O2SAT 99
[2025-11-04 21:00] VITALS: BP 135/70; PULSE 77; RESP 16; TEMP 36.8; O2SAT 98
--- NOTE | 2025-11-04 22:14 | ED.RN ---
Patient requesting disc of CT. [place] in [place] notified
[2025-11-04 22:16] VITALS: BP 135/70; PULSE 77; RESP 16; TEMP 36.8; O2SAT 98
[2025-11-04 22:17] VITALS: BP 135/70; PULSE 77; RESP 16; TEMP 36.8; O2SAT 98
== END 2025-11-04 22:18 | disposition home or self-care (01) ==
PROVIDERS: Emergency Provider Emergency Medicine; Visit Provider Emergency Medicine
DX: K02.9 Dental caries, unspecified (principal); R03.0 Elevated blood-pressure reading, without diagnosis of hypertension
CPT/HCPCS: 70491; 80048; 85025; 96365; 96375; 99283; Q9967; A4216